=== PATIENT | female | born 1970 | race Caucasian/White ===

== ENCOUNTER 2023-07-31 13:03 | Emergency (ER) | payer OTHER ==
[~2023-07-31] VITALS: Ht 154.9 cm; Wt 59.0 kg
[2023-07-31 13:03] VITALS: BP_SYST 129; PULSE 75; RESP 18; TEMP 97.4; O2SAT 99
[2023-07-31 13:30] LABS: BASOPHILS # (AUTO) 0.1 K/uL (0.0-0.2); BASOPHILS % (AUTO) 0.7 % (0.0-2.0); EOSINOPHILS # (AUTO) 0.2 K/uL (0.0-0.4); EOSINOPHILS % (AUTO) 2.1 % (0.0-4.0); HEMATOCRIT 34.3 % (36-48); HEMOGLOBIN 11.2 g/dL (12.0-16.0); LYMPHOCYTES # (AUTO) 1.6 K/uL (1.0-5.5); LYMPHOCYTES % (AUTO) 16.8 % (20.5-51.5); MEAN CORPUSCULAR HEMOGLOBIN 23 pg (27-31); MEAN CORPUSCULAR HGB CONC 33 % (32-36); MEAN CORPUSCULAR VOLUME 70 fL (79.0-98.0); MONOCYTES # (AUTO) 0.7 K/uL (0.0-1.0); MONOCYTES % (AUTO) 7.1 % (1.7-9.3); NEUTROPHILS # (AUTO) 6.9 K/uL (1.8-7.7); NEUTROPHILS % (AUTO) 73.3 % (40.0-70.0); RED BLOOD CELL COUNT(AUTO) 4.88 MIL/uL (4.2-6.2); RED CELL DISTRIBUTION WIDTH 17.6 % (9.0-15.0); WHITE BLOOD COUNT (AUTO) 9.5 K/uL (4.8-10.8)
[2023-07-31] MEDS: MORPHINE 4 MG INJ. 4 MG/ML VIAL IVP ONE (13:34)
[2023-07-31 13:49] LABS: ALBUMIN 3.1 g/dL (3.4-4.8); BILIRUBIN,DIRECT 0.3 mg/dL (0.0-0.3); CALCIUM 8.9 mg/dL (8.4-11.0); CREATININE 0.75 mg/dL (0.55-1.30); POTASSIUM 3.9 mmol/L (3.5-5.1); TOTAL BILIRUBIN 0.4 mg/dL (0.0-1.0)
[2023-07-31] MEDS: NACL 0.9% 1,000 ML IV ONE (13:51)
[2023-07-31] MEDS: ONDANSETRON HCL 4 MG/2 ML VIAL IVP ONE (13:51)
[2023-07-31 14:58] LABS: ANISOCYTOSIS 1+
[2023-07-31 15:00] LABS: PLATELET COUNT (AUTO) 511 K/uL (130-430)
[2023-07-31] MEDS ORDERED: IBUP-1969 PO (15:25)
[2023-07-31] MEDS ORDERED: HYDR-3917 PO (15:25)
[2023-07-31 15:55] VITALS: BP_SYST 145; PULSE 88; RESP 18; TEMP 97.9; O2SAT 97
== END 2023-07-31 15:55 | disposition home or self-care (01) ==
LOC: SED 13:03
DX: K80.50 Calculus of bile duct without cholangitis or cholecystitis without obstruction (principal); R10.13 Epigastric pain; J44.9 Chronic obstructive pulmonary disease, unspecified; Z88.8 Allergy status to other drugs, medicaments and biological substances; Z79.899 Other long term (current) drug therapy
CPT/HCPCS: 99285; 96374; 76705; 96361; 80076; 80048; 83690; 85025; 36415; J2405; J2270; J7030